=== PATIENT | male | born 1980 | race Caucasian/White ===

== ENCOUNTER 2016-03-04 10:59 | Emergency (ER) | payer SELFPAY ==
[~2016-03-04] VITALS: Ht 167.6 cm; Wt 77.1 kg
[~2016-03-04 10:59] MED LIST: BENZ9GEL MM; LIDO20SO20 PO
[2016-03-04 11:43] LABS: KETONES,URINE NEGATIVE (NEGATIVE); LEUKOCYTE ESTERASE ,URINE 1+ (NEGATIVE); NITRITE,URINE NEGATIVE (NEGATIVE); PH,URINE 5 (5-9); PROTEIN,URINE 3+ (NEGATIVE); UROBILINOGEN,URINE 4 MG/DL (NORMAL)
[2016-03-04 11:43] LABS: BASOPHILS # (AUTO) 0.1 10^3/uL (0.0-0.1); BASOPHILS % (AUTO) 1 % (0-10); EOSINOPHILS # (AUTO) 0.3 10^3/uL (0.0-0.3); EOSINOPHILS % (AUTO) 4 % (0-10); LYMPHOCYTES # (AUTO) 2.6 X 10^3 (1.0-4.0); LYMPHOCYTES % (AUTO) 36 % (12-44); MEAN CORPUSCULAR HEMOGLOBIN 32 PG (25-34); MEAN CORPUSCULAR HGB CONC 36 G/DL (32-36); MEAN CORPUSCULAR VOLUME 89 FL (80-99); MEAN PLATELET VOLUME 9.6 FL (7.4-10.4); MONOCYTES % (AUTO) 14 % (0-12); NEUTROPHILS # (AUTO) 3.3 X 10^3 (1.8-7.8); NEUTROPHILS % (AUTO) 46 % (42-75); PLATELET COUNT 322 10^3/uL (130-400); RED BLOOD COUNT 4.89 10^6/uL (4.35-5.85); RED CELL DISTRIBUTION WIDTH 13.4 % (10.0-14.5); WHITE BLOOD COUNT 7.2 10^3/uL (4.3-11.0)
[2016-03-04] MEDS ORDERED: KETOROLAC 30 MG/ML VIAL IVP ONE (11:45)
[2016-03-04] MEDS ORDERED: ONDANSETRON 4 MG/2 ML (SDV) Z0FRAN IVP ONE (11:45)
--- NOTE | 2016-03-04 11:46 | ED Abdominal Pain ---
General Chief Complaint: -Male Stated Complaint: BLOOD IN URINE/LOWER ABD PAIN Nursing Triage Note: PT C/O SUPRAPUBIC PAIN WITH INTERMITTENT HEMATURIA. Sepsis Screen: No Definite Risk Source of Information: Patient, Family Exam Limitations: Intoxication History of Present Illness Time Seen By Provider: 11:39 Initial Comments 35-year-old male presents with a complaint of severe suprapubic abdominal pain and hematuria that has occurred intermittently now for the third time. Original episode occurred approximately 2 weeks ago on the second episode on and then again today. Patient has severe sharp pain from the suprapubic region radiating the testicles. He's had no associated testicular swelling, testicular tenderness, urethral discharge, or fever or chill. The patient has a sense of continual urinary and bowel urgency. The patient denies similar before the last 2 weeks. His past medical history essentially unremarkable. Allergies and Home Medications Allergies Coded Allergies: No Known Drug Allergies (Unverified , 07/23/10) Home Medications Benzocaine 7 Gm Gel..gm. 7 GM MM PRN (Reported) Review of Systems Constitutional: No chills, No fever EENTM: No Blurred Vision, No Ear Pain Respiratory: Denies Cough Cardiovascular: Denies Chest Pain Gastrointestinal: See HPIDenies Abdomen Distended, Abdominal PainDenies Diarrhea, Denies Vomiting Genitourinary: See HPI Burning FrequencyDenies Flank Pain, Hematuria Musculoskeletal: No back pain Skin: No rash Psychiatric/Neurological: No Symptoms Reported Endocrine: No Symptoms Reported Hematologic/Lymphatic: No Symptoms Reported Past Nlauegw-Jkacch-Ugibmu Hx Patient Social History Alcohol Use: Occasionally Uses Recreational Drug Use: No Smoking Status: Current Everyday Smoker Recent Foreign Travel: No Contact w/Someone Who Travel: No Recent Infectious Disease Expo: No Recent Hopitalizations: No Physical Abuse Screen: No Sexual Abuse: No Seasonal Allergies Seasonal Allergies: No Surgeries HX Surgeries: No Reviewed Nursing Assessment Reviewed/Agree w Nursing PMH: Yes Physical Exam Vital Signs VS - Last 72 Hours, by Label 03/04/16 11:35 Temp 98.9 Pulse 108 Resp 20 B/P 148/102 Pulse Ox 97 O2 Delivery Room Air Capillary Refill : Less Than 3 Seconds General Appearance: WD/WN no apparent distress Neck: normal inspection Respiratory: lungs clear Cardiovascular: regular rate, rhythm no murmur Gastrointestinal: normal bowel sounds non tender soft Genital/Rectal: normal genital exam Extremities: normal range of motion Back: normal inspection Male: normal genitalia Neurologic/Psychiatric: no motor/sensory deficits alert normal mood/affect Skin: normal color warm/dry Progress/Results/Core Measures Results/Orders Lab Results Laboratory Tests Test 03/04/16 11:26 03/04/16 11:30 Range/Units Alanine Aminotransferase (ALT/SGPT) 19 0-55 U/L Albumin 4.5 3.2-4.5 G/DL Alkaline Phosphatase 84 40-136 U/L Anion Gap 11 5-14 MMOL/L Aspartate Amino Transf (AST/SGOT) 20 5-34 U/L BUN/Creatinine Ratio 12 Basophils # (Auto) 0.1 0.0-0.1 10^3/uL Basophils (%) (Auto) 1 0-10 % Blood Urea Nitrogen 12 7-18 MG/DL Calcium Level 9.2 8.5-10.1 MG/DL Carbon Dioxide Level 24 21-32 MMOL/L Chloride Level 105 98-107 MMOL/L Creatinine 0.98 0.60-1.30 MG/DL Eosinophils # (Auto) 0.3 0.0-0.3 10^3/uL Eosinophils (%) (Auto) 4 0-10 % Estimat Glomerular Filtration Rate > 60 Glucose Level 91 70-105 MG/DL Hematocrit 43 40-54 % Hemoglobin 15.5 13.3-17.7 G/DL Lipase 25 8-78 U/L Lymphocytes # (Auto) 2.6 1.0-4.0 X 10^3 Lymphocytes (%) (Auto) 36 12-44 % Mean Corpuscular Hemoglobin 32 25-34 PG Mean Corpuscular Hemoglobin Concent 36 32-36 G/DL Mean Corpuscular Volume 89 80-99 FL Mean Platelet Volume 9.6 7.4-10.4 FL Monocytes # (Auto) 1.0 0.0-1.0 X 10^3 Monocytes (%) (Auto) 14 H 0-12 % Neutrophils # (Auto) 3.3 1.8-7.8 X 10^3 Neutrophils (%) (Auto) 46 42-75 % Platelet Count 322 130-400 10^3/uL Potassium Level 3.9 3.6-5.0 MMOL/L Red Blood Count 4.89 4.35-5.85 10^6/uL Red Cell Distribution Width 13.4 10.0-14.5 % Sodium Level 140 135-145 MMOL/L Total Bilirubin 0.4 0.1-1.0 MG/DL Total Protein 7.3 6.4-8.2 G/DL White Blood Count 7.2 4.3-11.0 10^3/uL Urine Bacteria NEGATIVE /HPF Urine Bilirubin 1+ H NEGATIVE Urine Calcium Oxalate Crystals LARGE H /LPF Urine Casts NONE /LPF Urine Clarity CLEAR Urine Color YELLOW Urine Crystals PRESENT H /LPF Urine Culture Indicated NO Urine Glucose (UA) NEGATIVE NEGATIVE Urine Ketones NEGATIVE NEGATIVE Urine Leukocyte Esterase 1+ H NEGATIVE Urine Mucus SMALL H /LPF Urine Nitrite NEGATIVE NEGATIVE Urine Protein 3+ H NEGATIVE Urine RBC 0-2 /HPF Urine RBC (Auto) 5+ H NEGATIVE Urine Specific [place] 1.025 H 1.016-1.022 Urine Squamous Epithelial Cells NONE /HPF Urine Urobilinogen 4 H NORMAL MG/DL Urine WBC NONE /HPF Urine pH 5 5-9 My Orders Orders-RICHI CARTER MD Ct Abd/Pelvis Wo(Kidney Stone) (03/04/16 11:36) Saline Lock/Iv-Start (03/04/16 11:36) Cbc With Automated Diff (03/04/16 11:36) Comprehensive Metabolic Panel (03/04/16 11:36) Lipase (03/04/16 11:36) Urinalysis (03/04/16 11:36) Ondansetron Injection (Zofran Injectio (03/04/16 11:45) Ketorolac Injection (Toradol Injection) (03/04/16 11:45) Medications Given in ED Current Medications Medications Dose Ordered Sig/Kim Route Start Time Stop Time Status Last Admin Dose Admin Ketorolac Tromethamine 30 mg ONCE ONCE IVP 03/04/16 11:45 03/04/16 11:46 DC 03/04/16 11:46 30 MG Ondansetron HCl 4 mg ONCE ONCE IVP 03/04/16 11:45 03/04/16 11:46 DC 03/04/16 11:46 4 MG Vital Signs/I&O Vital Sign - Last 12Hours 03/04/16 11:35 Temp 98.9 Pulse 108 Resp 20 B/P 148/102 Pulse Ox 97 O2 Delivery Room Air Blood Pressure Mean: 117 Progress Note : Time: 12:46 Progress Note The patient's CT demonstrated a 2 mm distal right UVJ stone. Patient demonstrated hematuria and calcium oxalate crystals. Departure Impression Impression: Primary Impression: Kidney stone on right side Disposition: 01 HOME, SELF-CARE Condition: Improved Departure-Patient Inst. Decision time for Depature: 12:47 Referrals: NO,LOCAL PHYSICIAN (PCP) Primary Care Physician OLLIE BROWN MD Patient Instructions: Kidney Stones in Adults Add. Discharge Instructions: Flomax and Toradol as prescribed. Close follow-up with urology, Dr. Brown. Come back for any problems or questions. All discharge instructions reviewed with patient and/or family. Voiced understanding. RICHI CARTER MD Mar 04, 2016 11:45
[2016-03-04 11:49] LABS: BILIRUBIN,URINE 1+ (NEGATIVE)
[2016-03-04 11:50] LABS: CALCIUM OXALATE CRYSTALS,UR LARGE /LPF
[2016-03-04 11:54] LABS: ALANINE AMINOTRANSFERASE 19 U/L (0-55); ALBUMIN 4.5 G/DL (3.2-4.5); ANION GAP 11 MMOL/L (5-14); ASPARTATE AMINO TRANSFERASE 20 U/L (5-34); BILIRUBIN,TOTAL 0.4 MG/DL (0.1-1.0); BLOOD UREA NITROGEN 12 MG/DL (7-18); BUN/CREATININE RATIO 12; CALCIUM 9.2 MG/DL (8.5-10.1); CARBON DIOXIDE 24 MMOL/L (21-32); CHLORIDE 105 MMOL/L (98-107); CREATININE SERUM 0.98 MG/DL (0.60-1.30); GFR ESTIMATED > 60; GLUCOSE 91 MG/DL (70-105); LIPASE 25 U/L (8-78); POTASSIUM 3.9 MMOL/L (3.6-5.0); SODIUM 140 MMOL/L (135-145); TOTAL PROTEIN 7.3 G/DL (6.4-8.2)
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
[2016-03-04 12:55] VITALS: BP 148/102
== END 2016-03-04 12:55 | disposition home or self-care (01) ==
LOC: EDUNIT# 10:59 → ER 11:01
DX: N20.1 Calculus of ureter (principal); F17.210 Nicotine dependence, cigarettes, uncomplicated
CPT/HCPCS: 36415; 74176; 80053; 81000; 83690; 85025; 96374; 96375

== ENCOUNTER 2017-06-19 06:28 | Emergency (ER) | payer SELFPAY ==
[2017-06-19] MEDS ORDERED: fentaNYL INJECTION 100 MCG/2 ML AMP ONE (06:38)
[2017-06-19] MEDS ORDERED: TETANUS,DIPTH,PERTUSS P/F (BOOSTRIX) 0.5 ML VIAL IM STA (06:39)
[2017-06-19] MEDS ORDERED: fentaNYL INJECTION 100 MCG/2 ML AMP IVP STA (06:39)
[2017-06-19] MEDS ORDERED: NS IV 1000 ML 1,000 ML ONE (06:43)
[2017-06-19] MEDS ORDERED: NS IV 1000 ML 1,000 ML IV ONE (06:45)
[2017-06-19] MEDS ORDERED: TETANUS,DIPTH,PERTUSS P/F (BOOSTRIX) 0.5 ML VIAL IM ONE (07:06)
[2017-06-19 07:19] LABS: HEMOGLOBIN 13.2 G/DL (13.3-17.7); MEAN PLATELET VOLUME 9.7 FL (7.4-10.4); RED BLOOD COUNT 4.23 10^6/uL (4.35-5.85); RED CELL DISTRIBUTION WIDTH 12.7 % (10.0-14.5); WHITE BLOOD COUNT 16.1 10^3/uL (4.3-11.0)
[2017-06-19] MEDS ORDERED: LIDOCAINE/EPI 2% 1:100,00 (XYLOCAINE) 20 ML VIAL ONE (07:19)
[2017-06-19 07:33] LABS: ALANINE AMINOTRANSFERASE 14 U/L (0-55); ALBUMIN 4.1 GM/DL (3.2-4.5); ALKALINE PHOSPHATASE 93 U/L (40-136); BILIRUBIN,DIRECT 0.3 MG/DL (0.0-0.3); BILIRUBIN,INDIRECT 0.3 MG/DL; BILIRUBIN,TOTAL 0.6 MG/DL (0.1-1.0); BUN/CREATININE RATIO 12; CALCIUM 9.3 MG/DL (8.5-10.1); CARBON DIOXIDE 24 MMOL/L (21-32); CHLORIDE 106 MMOL/L (98-107); CREATININE SERUM 0.99 MG/DL (0.60-1.30); GFR ESTIMATED > 60; GLUCOSE 145 MG/DL (70-105); POTASSIUM 3.6 MMOL/L (3.6-5.0); SODIUM 139 MMOL/L (135-145)
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
[2017-06-19] MEDS ORDERED: ceFAZolin 2 GM IV Premixed 50 ML IV ONE (07:45)
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
[2017-06-19] MEDS ORDERED: CEPH500T PO (08:22)
[2017-06-19 08:30] VITALS: BP 115/76
== END 2017-06-19 08:52 | disposition home or self-care (01) ==
LOC: EDUNIT# 06:28 → ER 06:30
DX: S61.411A Laceration without foreign body of right hand, initial encounter (principal); R40.2142 Coma scale, eyes open, spontaneous, at arrival to emergency department; R40.2252 Coma scale, best verbal response, oriented, at arrival to emergency department; R40.2362 Coma scale, best motor response, obeys commands, at arrival to emergency department; F17.200 Nicotine dependence, unspecified, uncomplicated; Z23 Encounter for immunization; X99.9XXA Assault by unspecified sharp object, initial encounter
CPT/HCPCS: 36415; 73130; 80048; 80076; 80320; 85027; 90471; 90715; 96361; 96365; 96375